=== PATIENT | male | born 1950 | race Caucasian/White ===

== ENCOUNTER 2016-12-02 04:11 | Observation (INO) | payer MEDICARE, OTHER ==
[~2016-12-02] VITALS: Ht 172.7 cm; Wt 85.0 kg
[2016-12-02] VITALS (19 sets, daily range): BP systolic 110–179; BP diastolic 56–94; PULSE 66–89; RESP 14–20; TEMP 97.8–98.9; O2SAT 93–98
[2016-12-02] MEDS: NITROGLYCERIN 0.4 MG SL 25 TABS/BTL SL SCH ×3 (04:23→04:34)
[2016-12-02] MEDS ORDERED: SODIUM CHLORIDE 0.9% FLUSH 5 ML FLUSH IVF PRN ×2 (04:30→06:00)
[2016-12-02] MEDS ORDERED: ASPIRIN 81 MG CHEW TAB PO ONE (04:30)
[2016-12-02 04:39] LABS: AUTOMATED NEUTROPHIL # 3.2 TH/MM3 (1.8-7.7); BASOPHIL % 0.7 % (0.0-2.0); EOSINOPHIL # 0.2 TH/MM3 (0-0.4); EOSINOPHIL % 2.7 % (0.0-4.0); HEMATOCRIT 56.3 % (39.0-51.0); HEMO FLAGS DIFF FINAL; LYMPH % 30.2 % (9.0-44.0); LYMPHOCYTE # 1.7 TH/MM3 (1.0-4.8); MEAN CELL VOLUME 99.2 FL (80.0-100.0); MEAN CORPUSCULAR HEMOGLOBIN 34.2 PG (27.0-34.0); MEAN CORPUSCULAR HGB CONC 34.4 % (32.0-36.0); MONO % 9.6 % (0.0-8.0); NEUT % 56.8 % (16.0-70.0); PLATELET COUNT 158 TH/MM3 (150-450); RED BLOOD COUNT 5.67 MIL/MM3 (4.50-5.90); RED CELL DISTRIBUTION WIDTH 14.4 % (11.6-17.2); WHITE BLOOD COUNT 5.6 TH/MM3 (4.0-11.0)
[2016-12-02 04:45] LABS: INTERNATIONAL NORMALIZED RATIO 0.9 RATIO
--- NOTE | 2016-12-02 04:50 | RADRPT ---
EXAM DATE/TIME: 12/02/2016 04:28 [facility] COMPARISON: No previous studies available for comparison. INDICATIONS : Pt having chest pain. MEDICAL HISTORY : None. SURGICAL HISTORY : None. ENCOUNTER: Initial ACUITY: 1 day PAIN SCORE: 6/10 LOCATION: Bilateral chest FINDINGS: A single view of the chest demonstrates minimal bibasilar subsegmental atelectasis. There may be a sm all right pleural effusion there is slight blunting of the costophrenic angle. Heart normal in size. The cardiomediastinal contours are unremarkable. Osseous structures are intact. CONCLUSION: 1. Minimal bibasilar subsegmental atelectasis. 2. Possible small right pleural effusion. Richie Munguia MD on December 02, 2016 at 4:48 Board Certified Radiologist. This report was verified electronically.
--- NOTE | 2016-12-02 04:50 | PD ---
HPI Chief Complaint: Chest Pain Time Seen by Provider: 04:19 Travel History International Travel<30 days: No Contact w/Intl Traveler<30days: No Traveled to known affect area: No History of Present Illness HPI Patient is a 66-year-old male who presents to emergency room with complaints of chest pain. Patient reports that chest pain began while at rest around 10 PM last night. Patient reports chest pain across his whole chest, reports that is nonradiating in nature. Patient reports no diaphoresis of symptoms, reports nausea and vomiting. Patient denies palpitations, reports shortness of breath with symptoms. Patient reports that he has been having intermittent chest pain for the past few weeks. Patient reports that he does not have any medical history as he has not seen a physician in 30 years. Patient does admit to being 3 pack per day smoker. PFSH Past Medical History Medical History: Denies Significant Hx Past Surgical History Eye Surgery: Yes Social History Alcohol Use: Yes (2 DRINKS/DAY) Tobacco Use: Yes (1PPD) Substance Use: No Allergies-Medications (Allergen,Severity, Reaction): Coded Allergies: No Known Allergies (Unverified , 12/02/16) Reported Meds & Prescriptions Reported Meds & Active Scripts Active No Active Prescriptions or Reported Medications Review of Systems General / Constitutional: No: Fever Eyes: No: Visual changes HENT: No: Headaches Cardiovascular: Positive: Chest Pain or Discomfort Respiratory: Positive: Shortness of Breath Gastrointestinal: Positive: Nausea, Vomiting, No: Abdominal Pain Genitourinary: No: Dysuria Musculoskeletal: No: Pain Skin: No Rash Neurologic: No: Weakness Psychiatric: No: Depression Endocrine: No: Polydipsia Hematologic/Lymphatic: No: Easy Bruising Physical Exam Narrative GENERAL: No acute distress, nontoxic SKIN: Warm and dry. HEAD: Atraumatic. Normocephalic. EYES: Pupils equal and round. No scleral icterus. No injection or drainage. ENT: No nasal bleeding or discharge. Mucous membranes pink and moist. NECK: Trachea midline. No JVD. CARDIOVASCULAR: Regular rate and rhythm. No murmur appreciated. RESPIRATORY: No accessory muscle use. Clear to auscultation. Breath sounds equal bilaterally. GASTROINTESTINAL: Abdomen soft, non-tender, nondistended. Hepatic and splenic margins not palpable. MUSCULOSKELETAL: No obvious deformities. No clubbing. No cyanosis. No edema. NEUROLOGICAL: Awake and alert. No obvious cranial nerve deficits. Motor grossly within normal limits. Normal speech. PSYCHIATRIC: Appropriate mood and affect; insight and judgment normal. Data Data Last Documented VS Vital Signs Date Time Temp Pulse Resp B/P Pulse Ox O2 Delivery O2 Flow Rate FiO2 12/02/16 04:40 76 17 110/56 94 Room Air 12/02/16 04:18 98.9 Orders Ckmb (Isoenzyme) Profile (12/02/16 04:21) Complete Blood Count With Diff (12/02/16 04:21) Comprehensive Metabolic Panel (12/02/16 04:21) Prothrombin Time / Inr (Pt) (12/02/16 04:21) Act Partial Throm Time (Ptt) (12/02/16 04:21) Troponin I (12/02/16 04:21) Lipase (12/02/16 04:21) Chest, Single Ap (12/02/16 04:21) Ecg Monitoring (12/02/16 04:21) Iv Access Insert/Monitor (12/02/16 04:21) Oximetry (12/02/16 04:21) Aspirin Chew (Aspirin Chew) (12/02/16 04:30) Sodium Chloride 0.9% Flush (Ns Flush) (12/02/16 04:30) Nitroglycerin Sl (Nitrostat Sl) (12/02/16 04:30) Nitroglycerin 2% Oint (Nitroglycerin 2% (12/02/16 05:45) Admit Order (Ed Use Only) (12/02/16 05:49) Activity Bed Rest With Brp (12/02/16 05:50) Vital Signs (Adult) Q4H (12/02/16 05:50) Cardiac Rhythm .As Directed (12/02/16 05:50) ^ Notify Dr: Other .PRN (12/02/16 05:50) ^ Notify Dr. Parameters (12/02/16 05:50) Resp Oxygen Nasal Cannula (12/02/16 ) Diet Npo (12/02/16 Breakfast) Ckmb (Isoenzyme) Profile (12/02/16 07:30) Labs Laboratory Tests Test 12/02/16 04:30 White Blood Count 5.6 TH/MM3 Red Blood Count 5.67 MIL/MM3 Hemoglobin 19.4 GM/DL Hematocrit 56.3 % Mean Corpuscular Volume 99.2 FL Mean Corpuscular Hemoglobin 34.2 PG Mean Corpuscular Hemoglobin 34.4 % Concent Red Cell Distribution Width 14.4 % Platelet Count 158 TH/MM3 Mean Platelet Volume 8.9 FL Neutrophils (%) (Auto) 56.8 % Lymphocytes (%) (Auto) 30.2 % Monocytes (%) (Auto) 9.6 % Eosinophils (%) (Auto) 2.7 % Basophils (%) (Auto) 0.7 % Neutrophils # (Auto) 3.2 TH/MM3 Lymphocytes # (Auto) 1.7 TH/MM3 Monocytes # (Auto) 0.5 TH/MM3 Eosinophils # (Auto) 0.2 TH/MM3 Basophils # (Auto) 0.0 TH/MM3 CBC Comment DIFF FINAL Differential Comment Prothrombin Time 10.0 SEC Prothromb Time International 0.9 RATIO Ratio Activated Partial 30.0 SEC Thromboplast Time Sodium Level 141 MEQ/L Potassium Level 4.2 MEQ/L Chloride Level 107 MEQ/L Carbon Dioxide Level 23.3 MEQ/L Anion Gap 11 MEQ/L Blood Urea Nitrogen 8 MG/DL Creatinine 0.86 MG/DL Estimat Glomerular Filtration 89 ML/MIN Rate Random Glucose 98 MG/DL Calcium Level 8.4 MG/DL Total Bilirubin 0.4 MG/DL Aspartate Amino Transf 19 U/L (AST/SGOT) Alanine Aminotransferase 32 U/L (ALT/SGPT) Alkaline Phosphatase 126 U/L Total Creatine Kinase 71 U/L Troponin I LESS THAN 0.02 NG/ML Total Protein 7.5 GM/DL Albumin 3.4 GM/DL Lipase 285 U/L MDM Medical Decision Making Medical Screen Exam Complete: Yes Emergency Medical Condition: Yes Interpretation(s) Vital Signs Date Time Temp Pulse Resp B/P Pulse Ox O2 Delivery O2 Flow Rate FiO2 12/02/16 04:33 81 14 129/74 94 Room Air 12/02/16 04:32 18 95 Room Air 12/02/16 04:30 77 18 129/74 95 Room Air 12/02/16 04:27 81 18 148/81 95 Room Air 12/02/16 04:24 79 18 97 Room Air 12/02/16 04:18 98.9 79 18 179/94 97 EKG at 0416: No sinus rhythm at 78 beats a minute, QT/QTc 377/411 Differential Diagnosis ACS, arrhythmia, electrolyte abnormality, pneumothorax, pancreatitis Narrative Course Patient is a 66-year-old male who presents to emergency room with complaints of chest pain. Patient reports that chest pain began around 10 PM last night, reports sensation of pressure to his chest with associated shortness of breath. Patient has been having intermittent symptoms for the past few weeks, he has not seen a doctor for this. Patient reports that symptoms are worse tonight. Upon presentation emergency room, patient was placed on cardiac/vascular sonographer as well as continuous pulse oximeter. CBC, BMP, cardiac enzymes ordered for further evaluation symptoms. Patient was given 3 sublingual nitroglycerin which brought his pain down. Pt with near resolution of symptoms at this time. Pending labs and ce - if neg, will obs to cdu Patient chest pain-free at this time. Patient agreeable to observation in the CDU overnight. Diagnosis Primary Impression: Chest pain Qualified Code: R07.9 - Chest pain, unspecified type Admitting Information Admitting Physician Requests: Observation Scripts No Active Prescriptions or Reported Meds Yuly Rivero DO Dec 02, 2016 04:50
[2016-12-02 05:29] LABS: ALKALINE PHOSPHATASE 126 U/L (45-117); ALT (GPT) 32 U/L (12-78); ANION GAP 11 MEQ/L (5-15); AST (GOT) 19 U/L (15-37); BICARBONATE 23.3 MEQ/L (21.0-32.0); BLOOD UREA NITROGEN 8 MG/DL (7-18); CHLORIDE 107 MEQ/L (98-107); GLOMERULAR FILTRATION RATE 89 ML/MIN (>89); POTASSIUM 4.2 MEQ/L (3.5-5.1); SODIUM (NA) 141 MEQ/L (136-145); TOTAL BILIRUBIN ADULT 0.4 MG/DL (0.2-1.0)
[2016-12-02 05:31] LABS: CREATINE KINASE 71 U/L (39-308)
[2016-12-02] MEDS ORDERED: NITROGLYCERIN 2% OINT 1 GM PACKET TOP ONE (05:45)
[2016-12-02 08:49] LABS: CREATINE KINASE 47 U/L (39-308)
[2016-12-02] MEDS ORDERED: ONDANSETRON HCL 4 MG/2 ML VIAL IV PRN (09:00)
[2016-12-02] MEDS ORDERED: ACETAMINOPHEN 500 MG CPLT PO PRN (09:00)
[2016-12-02] MEDS ORDERED: ASPIRIN 325 MG TAB PO SCH (09:00)
[2016-12-02] MEDS: SODIUM CHLORIDE 0.9% FLUSH 5 ML FLUSH IVF SCH ×2 (09:00→22:38)
[2016-12-02] MEDS ORDERED: NITROGLYCERIN 0.4 MG SL 25 TABS/BTL SL PRN (09:00)
[2016-12-02] MEDS ORDERED: RESP: ALBUTEROL 2.5 MG/3 ML NEB (PRN) NEB (10:30)
--- NOTE | 2016-12-02 10:53 | MH ---
cc: DELILAH MAHONEY MD DATE OF ADMISSION: 12/02/2016 DATE OF : 1950 CHIEF COMPLAINT Chest pain. HISTORY OF PRESENT ILLNESS This is a 66-year-old patient who presented to the emergency room for further evaluation of chest discomfort yesterday while watching TV. He describes chest discomfort as a gradual tightness in his sternal area that gradually went away with the total time of 20 minutes. He also was nauseous and had some mild shortness of breath, severity 7/10. Chest discomfort woke him from sleep at 2 o'clock this morning. Again it was a gradual tightness that gradually went away after approximately 30-40 minutes, severity 8/10 with no radiation of the pain. Associated symptoms included nausea, dizziness and some mild shortness of breath. No known precipitating factors or relieving factors. The patient does report over the past few years he has had intermittent chest pain approximately 2-3 times a month that lasts seconds to no more than one minute. He has not seen a primary care provider in over 30 years. PAST MEDICAL HISTORY None. PAST SURGICAL HISTORY Right hand surgery 35 years ago. FAMILY HISTORY Noncontributory for any early onset cardiovascular disease. 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 He smokes one pack of cigarettes daily. He has been trying to cut back and was up to 2-1/2 to 3 packs of cigarettes daily. Will have a couple of drinks of alcohol each evening. Denies any illegal drug use. No known hypertension, diabetes or hyperlipidemia. Reports he was active until his current sedentary job. PAST CARDIAC TESTING None. ALLERGIES He has no allergies to medication. MEDICATIONS Does not take any medications or supplements. REVIEW OF SYSTEMS GENERAL: Has not recently been sick. No fevers, chills, night sweats, fatigue, malaise, change in appetite. HEENT: No headache or visual changes or dysphagia. CARDIOVASCULAR: As stated above. Currently denies any chest pain or pressure. No palpitations or dizziness. Reports intermittent leg pain with activity that subsides with rest. This been going on for "sometime." RESPIRATORY: Has some mild shortness of breath on exertion. He relates this to his smoking and is unchanged in severity. Does have an occasional wheeze. No hemoptysis. GASTROINTESTINAL: No bowel changes, diarrhea, constipation or abdominal pain. No blood in the stool or dark stool. No nausea or vomiting. Reports good appetite. No change in weight unintentionally. GENITOURINARY: No dysuria, urgency, frequency, hematuria. EXTREMITIES: No lower leg edema. Reports leg cramps in the evening. Otherwise as stated above with intermittent leg pain. NEUROLOGIC: No difficulty with balance, motor or sensory deficits, loss of consciousness. PSYCHIATRIC: No anxiety or depression. SKIN: No concerning lesions or rashes. PHYSICAL EXAMINATION VITAL SIGNS: Temperature 97.9, pulse 76, respiratory rate 16, blood pressure 134/76. He is 94% on room air. GENERAL: An alert, well-nourished, well-developed, in no acute distress pleasant male who appears older than his stated age. HEAD: Normocephalic, atraumatic. EYES: Sclera clear. Pupils equal and round. NECK: Supple. Trachea is midline. CARDIOVASCULAR: Regular rate and rhythm without murmur, rub or gallop. No JVD. S1, S2. No S3. No S4. PULMONARY: He has no crackles. He has expiratory wheeze and a prolonged expiratory phase. No rhonchi. Non-labored. Symmetrical chest rise. No use of accessory muscles. ABDOMEN: The abdomen is soft, nontender, nondistended. No masses. Positive bowel tones. EXTREMITIES: Pulses are faint, however, palpable +1 x4. No dependent edema. MUSCULOSKELETAL: Normal tone x4. No obvious deformities. NEUROLOGIC: Cranial nerves II through XII grossly intact. Motor strength 5/5. PSYCHIATRIC: He is alert and oriented x3, has appropriate mood, insight and judgment, and is pleasant. SKIN: Normal turgor, normal texture. Sluggish capillary refill. LABORATORY DATA CBC has a hemoglobin of 19.4, hematocrit of 56.3, and an MCH of 34.2, otherwise unremarkable. Chemistry is unremarkable. Two sets of cardiac enzymes are negative. Coagulation is unremarkable. IMAGING DATA Chest x-ray completed and read by the radiologist has a conclusion of minimal bibasilar subsegmental atelectasis. Possible small right pleural effusion. EKG DATA EKGs show a normal sinus rhythm with no ST or T segment changes. ASSESSMENT AND PLAN 1. Chest pain: The patient has been admitted to the chest pain center. Will complete three sets of EKGs and cardiac enzymes. He was seen and evaluated by Dr. Delilah Mahoney. If all his troponins and EKGs are negative we will then do a chemical stress test. This has been discussed with the patient and he is agreeable to this plan of care. 2. Polycythemia: He has been encouraged to follow-up with a primary care provider and to have additional lab work drawn. This has been discussed with him. It could be simply from his longstanding smoking history, however, should be followed up upon discharge with a primary care provider. He is agreeable to this plan of care and states understanding. 3. Tobacco use: He has been strongly encouraged and stressed on the importance of tobacco cessation. Discussed and counseled the patient to quit smoking. 4. Intermittent claudication: It has been discussed with the patient to follow with a primary care provider that the feelings he is having in his legs need to have further evaluation by a primary care provider for outpatient testing as this may be due to his longstanding smoking history. He is agreeable to this plan. Dictated by: KENIA Parmar MD OZZY Leach/MARI /10:22 AM /11:54 AM
[2016-12-02 11:14] LABS: CREATINE KINASE 41 U/L (39-308)
[2016-12-02] MEDS: RESP: ALBUTEROL 2.5 MG/3 ML NEB (SCH) NEB ×3 (12:53→19:48)
[2016-12-02] MEDS ORDERED: REGADENOSON INJ 0.4 MG/5 ML SYR ONE (13:33)
--- NOTE | 2016-12-02 14:59 | RADRPT ---
EXAM DATE/TIME: 12/02/2016 13:12 [facility] COMPARISON: No previous studies available for comparison. INDICATIONS : Chest pressure. Angina. DOSE: 25.4 mCi Tc99m Myoview at stress. 8.2 mCi Tc99m Myoview at rest. 0.4 mg Lexiscan STRESS SYMPTOMS: Dyspnea. EJECTION FRACTION: > 70% MEDICAL HISTORY : None SURGICAL HISTORY : Right hand surgery. ENCOUNTER: Initial ACUITY: 1 week PAIN SCALE: 7/10 LOCATION: Substernal chest pain TECHNIQUE: The patient underwent pharmacologic stress with infusion of prescribed dose. Continuous ECG tracing was monitored during stress. Gated SPECT imaging was performed after stress and conventional SPECT i maging was performed at rest. The examination was performed on a SPECT/CT scanner, both attenuation and non-corrected datasets were reviewed. FINDINGS: DISTRIBUTION: The maximum perfused segment at stress is in the anteroseptal wall. PERFUSION STUDY: A subtle stress induced perfusion abnormality which redistributes breast is identified in the anterol ateral wall. GATED STUDY: There is intact wall motion and thickening without hypokinetic or dyskinetic segments. CONCLUSION: Questionable stress-induced perfusion abnormalities in the anterolateral wall of left ventricle. Myoc ardial perfusion is otherwise unremarkable at stress and rest. There are no associated wall motion ab normalities. Normal ejection fraction. RISK CATEGORY: Low (<1% Annual Mortality Rate) Estrada Page MD on December 02, 2016 at 14:52 Board Certified Radiologist. This report was verified electronically.
[2016-12-02] MEDS ORDERED: DIAZEPAM 5 MG TAB PO SCH (17:00)
[2016-12-02] MEDS ORDERED: diphenhydrAMINE HCL 50 MG CAP PO SCH (17:00)
[2016-12-02] MEDS: SODIUM CHLOR 0.9% 1000 ML INJ 1,000 ML IV SCH (17:00)
[2016-12-02] MEDS: NITROGLYCERIN 2% OINT 1 GM PACKET TOPICAL SCH (17:52)
[2016-12-02 18:26] LABS: HDL CHOLESTEROL 43.4 MG/DL (40.0-60.0)
[2016-12-02] MEDS ORDERED: METOPROLOL TARTRATE 25 MG TAB PO SCH (21:00)
--- NOTE | 2016-12-02 22:07 | MB ---
cc: SATINDER MUNOZ M.D. DATE OF CONSULTATION 12/02/2016 REASON FOR CONSULTATION Evaluation of chest pain and abnormal stress test. HISTORY OF THE PRESENT ILLNESS Eren Lugo is a 66 year-old man who has not been to a doctor in 30 years. He developed the onset of chest tightness while watching TV lasting 20 minutes, associated with nausea and mild shortness of breath. He has had similar symptoms about two or three times a month for at least several months. He has a longstanding history of smoking. He underwent a stress test which was abnormal. PAST MEDICAL HISTORY Unremarkable. PAST SURGICAL HISTORY Right hand surgery. FAMILY HISTORY Negative for heart disease. SOCIAL HISTORY Has smoked up to three packs a day, currently one-pack a day. Has never gone cold turkey. No illicit drug use. ALLERGIES None. MEDICATIONS PRIOR TO ADMISSION None. REVIEW OF SYSTEMS Notable for bilateral calf claudication after walking 150 feet. PHYSICAL EXAMINATION GENERAL: Well-developed, well-nourished white male in no acute distress. VITAL SIGNS: Charted. HEENT: Exam unremarkable. NECK: No JVD, no bruits. CHEST: Clear to auscultation on my exam. CARDIOVASCULAR: Cardiac exam S1-S2 regular rate and rhythm. I do not hear a murmur or gallop. ABDOMEN: Soft, nontender. No masses, organomegaly. EXTREMITIES: Reveal diminished left femoral pulse with a bruit. Absent pedal pulses. Atrophic changes suggestive of vascular disease. His EKGs demonstrate normal sinus rhythm with no ischemia. LABORATORY DATA His laboratories are charted. He is polycythemic. His nuclear stress test is interpreted as possible anterolateral ischemia which is subtle. IMPRESSION This 66-year-old male longstanding smoker with obvious vascular disease on exam, he has peripheral arterial disease in both lower extremities and involving the left groin as well. He has had typical anginal type symptoms. There is no evidence for an MD but with abnormalities on stress test and his risk factors, I think he should stay in the hospital for unstable angina. I got him scheduled for a cardiac catheterization tomorrow morning. Smoking cessation has been advised. We will check his lipids, initiate a beta-khurram, nitrate therapy. Informed consent obtained to the cath, possible intervention. MD ALONSO Mix/KK /4:46 PM /9:56 PM
[2016-12-03] MEDS: NITROGLYCERIN 2% OINT 1 GM PACKET TOPICAL SCH ×2 (00:05→06:00)
[2016-12-03] MEDS: SODIUM CHLOR 0.9% 1000 ML INJ 1,000 ML IV SCH (03:19)
[2016-12-03] MEDS: RESP: ALBUTEROL 2.5 MG/3 ML NEB (SCH) NEB ×3 (03:38→16:00)
[2016-12-03 04:27] VITALS: BP 94/55; PULSE 79; RESP 20; TEMP 98; O2SAT 95
[2016-12-03] MEDS ORDERED: HEPARIN-NS/PF INJ 500 ML ONE (07:15)
[2016-12-03] MEDS ORDERED: MIDAZOLAM HCL 2 MG/2 ML VIAL ONE (07:15)
[2016-12-03] MEDS ORDERED: LABETALOL HCL 100 MG/20 ML VIAL ONE (08:24)
[2016-12-03] MEDS ORDERED: ATROPINE SULFATE 1 MG/ML VIAL IV PRN (08:30)
[2016-12-03] MEDS ORDERED: BACITRACIN OINT 0.9 GM PKT TOP ONE (08:30)
[2016-12-03] MEDS ORDERED: SODIUM CHLORIDE 0.9% FLUSH 5 ML FLUSH IVF PRN (08:30)
[2016-12-03] MEDS ORDERED: SODIUM CHLOR 0.9% 1000 ML INJ 1,000 ML IV SCH (08:30)
[2016-12-03] MEDS ORDERED: MISC INFORMATION XX ONE (08:30)
[2016-12-03] MEDS ORDERED: SODIUM CHLOR 0.9% 250 ML INJ 250 ML IV PRN (08:30)
[2016-12-03] MEDS ORDERED: ONDANSETRON HCL 4 MG/2 ML VIAL IV PRN (08:30)
--- NOTE | 2016-12-03 08:35 | EKG ---
Date Performed: 12/02/2016 Time Performed: 07:40:02 PTAGE: 66 years EKG: Sinus rhythm NORMAL ECG PREVIOUS TRACING : 12/02/2016 04.16 Since previous tracing, no significant change noted DOCTOR: Stanford Mahoney Interpretating Date/Time 12/03/2016 08:33:25
--- NOTE | 2016-12-03 08:35 | EKG ---
Date Performed: 12/02/2016 Time Performed: 10:44:12 PTAGE: 66 years EKG: Sinus rhythm NORMAL ECG PREVIOUS TRACING : 12/02/2016 07.40 Since previous tracing, no significant change noted DOCTOR: Stanford Mahoney Interpretating Date/Time 12/03/2016 08:33:14
--- NOTE | 2016-12-03 08:35 | EKG ---
Date Performed: 12/02/2016 Time Performed: 04:16:11 PTAGE: 66 years EKG: Sinus rhythm NORMAL ECG NO PREVIOUS TRACING DOCTOR: Stanford Mahoney Interpretating Date/Time 12/03/2016 08:34:05
--- NOTE | 2016-12-03 08:37 | TR ---
Date Performed: 12/02/2016 Time Performed: 13:40:10 DOCTOR: Stanford Mahoney DRUG LIST: CLINICAL HISTORY: CHEST PAIN REASON FOR TEST: CHEST PAIN REASON FOR ENDING: OBSERVATION: CONCLUSION: Lexiscan stress test was performed under standard four minute protocol. Radionuclid e was injected one minute prior to ending the test. No electrocardiographic abormalities were present to suggest ischemia. Nuclear imaging and interpretation are pending. COMMENTS:
--- NOTE | 2016-12-03 08:43 | PD.CONS ---
HPI Service [facility] Consult Requested By Cardiology Reason for Consult Medical management. Primary Care Physician No Primary Care Physician Diagnoses: History of Present Illness Mr. Lugo is a 66 year old male no significant medical history presented to the ED on 12/02/2016 due to chest pain that started around 10PM on 12/01/2016. His chest pain was diffuse, non-radiating. He did not have diaphoresis but had nausea, vomiting and some shortness of breath. First episode lasted about 20 minutes but he had another episode later that lasted 30-40 minutes. No changes in bladder or bowel habits. Denies any fever, chills. Review of Systems ROS Limitations: Other (Negative except as noted in the HPI. ) Past Family Social History Allergies: Coded Allergies: No Known Allergies (Unverified , 12/02/16) Past Medical History No significant medical history. He has not seen a doctor in 30 years. Past Surgical History Hand surgery 35 years ago. Active Ordered Medications Current Medications Acetaminophen (Tylenol) 500 mg Q4H PRN PO HEADACHE; Start 12/02/16 at 09:00 Ondansetron HCl (Zofran Inj) 4 mg Q6H PRN IV NAUSEA; Start 12/02/16 at 09:00 Nitroglycerin (Nitrostat Sl) 0.4 mg Q5M PRN SL CHEST PAIN; Start 12/02/16 at 09: 00 Aspirin (Aspirin) 325 mg DAILY PO ; Start 12/03/16 at 09:00 Albuterol Sulfate (Albuterol Neb) 2.5 mg Q6HR NEB NEB Last administered on 03:38; Start 12/02/16 at 10:30 Albuterol Sulfate (Albuterol Neb) 2.5 mg Q2HR NEB PRN NEB SOB/WHEEZING; Start 12/02/16 at 10:30 Nitroglycerin (Nitroglycerin 2% Oint) 1 inch Q6HR TOPICAL Last administered on 12/03/16 06:00; Start 12/02/16 at 18:00 Metoprolol Tartrate 25 mg 25 mg Q12HR PO Last administered on 12/02/16 22:38; Start 12/02/16 at 21:00 Sodium Chloride (NS 1000 ml Inj) 1,000 ml @ 100 mls/hr Q10H IV Last administered on 12/03/16 03:19; Start 12/02/16 at 17:00; Stop 12/07/16 at 16:59 Diphenhydramine HCl (Benadryl) 50 mg INFORMATION MANAGEMENT OFFICER PO Last administered on 06:57; Start 12/02/16 at 17:00; Stop 12/06/16 at 16:59 Diazepam (Valium) 5 mg INFORMATION MANAGEMENT OFFICER PO Last administered on 12/03/16 06:57; Start 12/02/16 at 17:00; Stop 12/06/16 at 16:59 Family History No family history of CAD, Alzheimer's or Parkinson's. Social History Smokes one pack a day. Drinks 1-2 drinks a night. No illicit drugs. Physical Exam Vital Signs Vital Signs Date Time Temp Pulse Resp B/P Pulse Ox O2 Delivery O2 Flow Rate FiO2 12/03/16 04:27 98.0 79 20 94/55 95 12/02/16 23:05 98.1 81 20 120/69 98 12/02/16 20:45 66 12/02/16 19:49 96 21 12/02/16 19:46 98.2 89 20 122/70 95 12/02/16 15:52 98.0 76 18 142/77 96 12/02/16 11:47 97.8 73 16 127/76 95 12/02/16 11:10 67 12/02/16 09:17 97.9 76 16 134/76 94 12/02/16 09:04 68 20 110/68 95 Physical Exam GENERAL: This is a well-nourished, well-developed patient, in no apparent distress. SKIN: No rashes, ecchymoses or lesions. Warm and dry. HEAD: Atraumatic. Normocephalic. No temporal or scalp tenderness. EYES: Pupils equal round and reactive. No injection or drainage. ENT: Nose without bleeding, purulent drainage or septal hematoma. Airway patent. NECK: Trachea midline. No lymphadenopathy. Supple, nontender, no meningeal signs. CARDIOVASCULAR: Regular rate and rhythm without murmurs, gallops, or rubs. No JVD. RESPIRATORY: Clear to auscultation. Breath sounds equal bilaterally. No wheezes , rales, or rhonchi. GASTROINTESTINAL: Abdomen soft, non-tender, nondistended. No guarding. MUSCULOSKELETAL: Extremities without clubbing, cyanosis, or edema. Cath site looks unremarkable. NEUROLOGICAL: Awake and alert. Cranial nerves II through XII intact. No focal neurological deficits. Normal speech. Laboratory Laboratory Tests Test 12/02/16 10:16 Total Creatine Kinase 41 Troponin I LESS THAN 0.02 Result Diagram: 12/02/16 0430 12/02/16 0430 Imaging Last Impressions Chest X-Ray 12/02/16 0421 Signed Impressions: Service Date/Time: Friday, December 02, 2016 04:28 - CONCLUSION: 1. Minimal bibasilar subsegmental atelectasis. 2. Possible small right pleural effusion. Richie Munguia MD Myocardial Perfusion Scan Nuc Med 12/02/16 0000 Signed Impressions: Service Date/Time: Friday, December 02, 2016 13:12 - CONCLUSION: Questionable stress-induced perfusion abnormalities in the anterolateral wall of left ventricle. Myocardial perfusion is otherwise unremarkable at stress and rest. There are no associated wall motion abnormalities. Normal ejection fraction. RISK CATEGORY: Low (<1%% Annual Mortality Rate) Estrada Page MD Assessment and Plan Problem List: (1) Unstable angina ICD Code: I20.0 Status: Acute (2) HTN (hypertension) ICD Code: I10 Status: Acute Assessment and Plan Mr. Lugo is a 66 year old male no significant medical history presented to the ED on 12/02/2016 due to chest pain that started around 10PM on 12/01/2016. Nuclear stress test showed questionable stress-induced perfusion abnormalities in the anterio-lateral wall of the left ventricle. Patient subsequently underwent cardiac catheterization on 12/03/2016. - Unstable angina - Dr. Michael Mcdonnell performed cardiac cath today 12/03/2016. No cardiac intervention was performed. - Discussed with Dr. Mcdonnell. Patient can be discharged this afternoon. - ASCVD score 17-20% when we consider normal systolic BP. - Will continue Aspirin 325mg Qday, Metoprolol 25mg Q12hrs. - Switch Pravastatin to Lipitor 40QHS, preferably 80 QHS. - Hypertension - BP is high this morning after cath. - Will give him Hydralazine 10mg Q6hrs PRN. Heart rate is 60. Will avoid Labetalol. - Start Amlodipine 5 mg Qday. This can be titrated up or down by PCP. - Erythrocytosis - possible polycythemia vera - Recommend patient to follow up with his PCP and possibly a mutton puncher regarding polycythemia vera - Will order JAK2 mutation. This can be followed by PCP/mutton puncher. - Tobacco abuse - Counselled patient regarding his smoking habits. He is motivated to quit smoking. Full code. Kareem Monreal DO Dec 03, 2016 8:43 am
[2016-12-03] MEDS ORDERED: SODIUM CHLORIDE 0.9% FLUSH 5 ML FLUSH IVF SCH (09:00)
[2016-12-03] MEDS ORDERED: ASPIRIN 325 MG TAB PO SCH (09:00)
[2016-12-03] MEDS ORDERED: hydrALAZINE HCL 20 MG/ML VIAL IV PUSH PRN (09:30)
[2016-12-03] MEDS ORDERED: ISOS60TA PO (10:02)
[2016-12-03] MEDS ORDERED: ASPI325T PO (10:02)
[2016-12-03] MEDS ORDERED: NITR0.4S SL (10:02)
[2016-12-03] MEDS ORDERED: AMLO5 PO (10:02)
[2016-12-03] MEDS ORDERED: METO25TA3 PO (10:02)
[2016-12-03] MEDS ORDERED: LIPI40TA PO (10:02)
--- NOTE | 2016-12-03 10:21 | MA ---
cc: SATINDER MUNOZ M.D. DATE: 12/03/2016 PROCEDURE PERFORMED: 1. Left heart catheterization. 2. Left ventriculogram. 3. Coronary angiography. 4. Supravalvular aortography. DESCRIPTION OF PROCEDURE: The patient was brought to the Cardiac Urologist in a fasting state. The right groin was prepped and draped in a sterile fashion. Using 1% lidocaine for local anesthesia, a 6.5-Panamanian sheath was inserted in the right femora artery requiring only a single stick. Left ventricular pressure was then recorded using a pigtail catheter followed by left ventriculography and then a pull-back. Coronary angiography was then performed. I could not get a left 5 Augusto to engage. A 3DRC was used to engage the right coronary artery. I went to a left 6 Augusto. This engaged the left main but actually went fairly deep in the LAD. I took one angiogram and pulled the catheter back and was not able to re-engage it. I then went with a left 2 Amplatz and was not able to engage the left main. I then used a multipurpose catheter which engaged the left main adequately to complete his angiograms. There was no need for revascularization. Supravalvular aortogram was then performed with a straight pigtail in the CHUY projection. The sheath was then to be pulled manually. There were no complications. FINDINGS I. HEMODYNAMICS: Left ventricular pressure was 142/6 with an end-diastolic pressure of 13. Aortic pressure was 142/60. There was no gradient during pullback from the left ventricle to the aorta. II. LEFT VENTRICULOGRAPHY: Left ventriculography shows normal left ventricular function and an EF of 70%. No mitral regurgitation. III. SUPRAVALVULAR AORTOGRAPHY: The aortic valve was tricuspid. The entire descending aorta was mildly dilated. There is no aortic regurgitation. IV. CORONARY ANGIOGRAPHY: The left main coronary artery is short and normal-appearing. The left anterior descending artery has a discrete eccentric 40% stenosis after the major diagonal branch. The second diagonal branch is small, maybe has 50% stenosis at its origin. The remainder of the LAD has irregularities only. The circumflex artery is nondominant. There is about 30% distal circumflex disease and 30% obtuse marginal branch disease. The right coronary artery is dominant and has irregularities particularly in the PDA branch. CONCLUSIONS: 1. Unremarkable hemodynamics. 2. Dilated ascending aorta. 3. Normal left ventricular systolic function. 4. Mild coronary artery disease. RECOMMENDATIONS: 1. Medical management. 2. He has been told to quit smoking and to take medications regularly. 3. He is stable enough to be followed through the [facility]. MD ALONSO Mix/SUMAN /8:30 AM /10:01 AM
[2016-12-03] MEDS ORDERED: ATORVASTATIN 40 MG TAB PO SCH (21:00)
[2016-12-03] MEDS ORDERED: PRAVASTATIN SOD 40 MG TAB PO SCH (21:00)
[2016-12-04] MEDS ORDERED: ISOSORBIDE MONONITRATE 60 MG TAB PO SCH (07:00)
[2016-12-04] MEDS ORDERED: amLODIPine BESYLATE 5 MG TAB PO SCH (09:00)
[2016-12-05] MEDS: RESP: ALBUTEROL 2.5 MG/3 ML NEB (SCH) NEB ×2 (09:52→16:15)
== END 2016-12-03 15:20 | disposition home or self-care (01) ==
LOC: NEPC 04:11 → NEDA 05:51 → NEPHCDU 09:14 → HCIS 12-03 08:57
PROVIDERS: ADMIT Hospitalist; ATTEND Hospitalist
DX: I25.110 Atherosclerotic heart disease of native coronary artery with unstable angina pectoris (principal); I77.819 Aortic ectasia, unspecified site; I73.9 Peripheral vascular disease, unspecified; D75.1 Secondary polycythemia; I10 Essential (primary) hypertension; F17.210 Nicotine dependence, cigarettes, uncomplicated; R94.39 Abnormal result of other cardiovascular function study; R06.02 Shortness of breath; R07.9 Chest pain, unspecified; R11.2 Nausea with vomiting, unspecified; R42 Dizziness and giddiness
CPT/HCPCS: 71010; 78452; 80053; 80061; 82550; 83690; 84484; 85025; 85610; 85730; 93005; 93017; 93458; 93567; 94640; 94664; 99285; A9502; C1769; C1893; G0378; J0360; J1644; J2250; J2785; J7030; J7613; Q0163

== ENCOUNTER 2018-09-05 17:35 | Observation (INO) ==
--- NOTE | 2018-09-05 18:37 | XR ---
EXAM DATE: 09/05/2018 6:10 PM EDT AGE/SEX: 67 years / Male INDICATIONS: Chest pain. Patient states he started coughing up blood on 09/04/2018 and experiencing dizziness and headaches. CLINICAL DATA: This is the patient's initial encounter. Patient reports that signs and symptoms have been present for 2 days and indicates a pain score of 3/10. MEDICAL/SURGICAL HISTORY: . Smoker. None. COMPARISON: [facility] [place], CHEST SINGLE AP, 12/02/2016. . FINDINGS: Mild diffuse interstitial prominence with stable small right pleural effusion/pleural thickening. No significant new focal pleural or parenchymal opacities. The cardiomediastinal contours are unremarkab le. Osseous structures are intact. CONCLUSION: 1. No acute abnormality or significant interval change. 2. Stable small right pleural effusion/pleural thickening. Electronically signed by: Bryce Jiménez MD 09/05/2018 6:36 PM EDT
[2018-09-05 18:38] LABS: Baso # (Auto) 0.1 th/mm3 (0.0-0.2); Eos # (Auto) 0.2 th/mm3 (0.0-0.4); Hemoglobin 17.8 gm/dL (13.0-17.0); Lymph # (Auto) 1.4 th/mm3 (1.0-4.8); Lymph % (Auto) 25.8 % (9.0-44.0); Mean Corpuscular HGB Conc 34.9 % (32.0-36.0); Mean Corpuscular Hemoglobin 33.1 pg (27.0-34.0); Mean Corpuscular Volume 94.7 fL (80.0-100.0); Mean Platelet Volume 8.9 fL (7.0-11.0); Mono # (Auto) 0.6 th/mm3 (0.0-0.9); Neut # (Auto) 3.3 th/mm3 (1.8-7.7); Neut % (Auto) 60.2 % (16.0-70.0); Platelet Count 157 th/mm3 (150-450); Red Blood Count 5.39 mil/mm3 (4.50-5.90); Red Cell Distribution Width 14.4 % (11.6-17.2); White Blood Count 5.5 th/mm3 (4.0-11.0)
[2018-09-05 18:45] LABS: Prothrombin Time 9.8 sec (9.8-11.6)
[2018-09-05 18:58] LABS: Albumin 3.3 g/dL (3.4-5.0); Anion Gap 8 meq/L (5-15); Aspartate Aminotransferase 24 U/L (15-37); Blood Urea Nitrogen 15 mg/dL (7-18); Calcium 8.6 mg/dL (8.5-10.1); Carbon Dioxide 21.9 meq/L (21.0-32.0); Chloride 107 meq/L (98-107); Glomerular Filtration Rate 62 mL/min (>89); Glucose,Random 108 mg/dL (74-106); Potassium 4.1 meq/L (3.5-5.1); Sodium 137 meq/L (136-145)
[2018-09-05 19:00] LABS: Alanine Aminotransferase 33 U/L (12-78)
[2018-09-05 19:03] LABS: Alkaline Phosphatase 126 U/L (45-117); Total Protein 7.7 g/dL (6.4-8.2)
[2018-09-05 19:07] LABS: Creatine Kinase 61 U/L (39-308)
--- NOTE | 2018-09-05 20:00 | ED ---
HPI General Chief complaint: Respiratory Symptoms Stated complaint: coughing up blood/headaches/dizziness Time Seen by Provider: 09/05/18 18:01 Source: patient and RN notes reviewed Mode of arrival: ambulatory Limitations: no limitations History of Present Illness HPI narrative: 67-year-old male the presents to the ED for evaluation of hemoptysis. Per patient he has been having cough of blood for the past couple of days. Per patient is not getting better. Per patient he has been feeling dizzy and weak today which is what prompted evaluation. Per patient he does not take any blood thinners. He denies any urinary or bowel movement issues. Denies any chest pain. No fevers chills or sweats. No recent travel. He does work in a motel. He states that the cough is productive and started more with phlegm and now it is blood stinched. He does show was 1 of his napkins where he coughed into and there is blood in some clots. Denies any headache. No blurry vision. States that for the most part he just feels dizzy. Per patient this is not as severe. More concerned about the bleeding. No history of PE. History of stents in the past. Related Data Home Medications Medication Instructions Recorded Confirmed aspirin 325 mg PO DAILY 09/05/18 09/05/18 Allergies Allergy/AdvReac Type Severity Reaction Status Date / Time No Known Allergies Allergy Verified 09/05/18 17:42 Review of Systems ROS: all other systems reviewed are negative [facility] Social History Social History Substance History: No History of Abuse Second Hand Smoke Exposure: No Smoking Status: Heavy tobacco smoker Tobacco Type: Cigarettes How Often Do You Have a Drink Containing Alcohol: 2 to 4 times a month Recent Travel in [facility] within the Last 8 Weeks: No Recent Out of Country Travel within the Last 8 Weeks: No Immunization History Tetanus Immunization: Unsure Exam Narrative Exam Narrative: GENERAL: Well-appearing SKIN: Focused skin assessment warm/dry. HEAD: Atraumatic. Normocephalic. EYES: Pupils equal and round. No scleral icterus. No injection or drainage. ENT: No nasal bleeding or discharge. Mucous membranes pink and moist. Tongue is midline. No uvula deviation. NECK: Trachea midline. No JVD. CARDIOVASCULAR: Regular rate and rhythm. No murmur appreciated. RESPIRATORY: No accessory muscle use. Mild wheezing heard especially on the left lower lung field left upper lung field. Breath sounds equal bilaterally. GASTROINTESTINAL: Abdomen soft, non-tender, nondistended. Hepatic and splenic margins not palpable. MUSCULOSKELETAL: No obvious deformities. No clubbing. No cyanosis. No edema. Full range of motion of the upper and lower extremities bilaterally. 2+ pulses bilaterally. NEUROLOGICAL: Awake and alert. No obvious cranial nerve deficits. Motor grossly within normal limits. Normal speech. PSYCHIATRIC: Appropriate mood and affect; insight and judgment normal. Course Initial Documented Vital Signs Temperature 98.6 F 09/05/18 17:39 Pulse Rate 80 09/05/18 17:39 Respiratory Rate 18 09/05/18 17:39 Blood Pressure 222/101 H 09/05/18 17:39 Pulse Oximetry 97 09/05/18 17:39 Last Documented Vital Signs Temperature 98.2 F 09/06/18 12:00 Pulse Rate 89 09/06/18 12:00 Respiratory Rate 16 09/06/18 12:00 Blood Pressure 180/93 H 09/06/18 12:00 Pulse Oximetry 95 09/06/18 12:00 Medical Decision Making SHAWN Attestation SHAWN supervised visit: Yes Attestation: Patient has hemoptysis all day long he has a CAT scan that shows abnormal lesions that could be infectious patient denies any history of risk for tuberculosis patient is a smoker patient is refusing to stay for admission for treatment of his hemoptysis as well as being seen by pulmonology I explained the patient is essential that he stays he is worried because 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 Patient was properly examined and was found to have signs and symptoms concerning for hemoptysis. Labs and imaging were ordered. Labs and imaging showed abnormalities in the CTA. My attending is concerned that this is likely cancer. Patient does continue to cough a lot of blood. Patient has multiple napkins here where he is coughing and there is blood and clots in it. Because of this my attending recommends admission for further evaluation and treatment. Case discussed with Dr. Darby who agrees to admission. My attending himself spoke with the patient as patient said he could not stay because he had to take care of his motel. He decided ultimately to stay for further treatment and management. Medical Screen Exam Complete: Yes Emergency Medical Condition: Yes Differential Diagnosis Differential Diagnosis: Hemoptysis versus PE versus pneumonia versus coughing of blood versus bacterial infection versus TB Medical Records Medical records reviewed: Yes I reviewed the patient's medical records. Lab Data Lab results reviewed: Yes I reviewed the patient's lab results. Result diagrams: 09/06/18 06:10 09/06/18 06:10 Lab Results 09/05/18 09/05/18 09/05/18 Range/Units 18:15 18:15 18:15 WBC 5.5 (4.0-11.0) th/mm3 RBC 5.39 (4.50-5.90) mil/mm3 Hgb 17.8 H (13.0-17.0) gm/dL Hct 51.0 (39.0-51.0) % MCV 94.7 (80.0-100.0) fL MCH 33.1 (27.0-34.0) pg MCHC 34.9 (32.0-36.0) % RDW 14.4 (11.6-17.2) % Plt Count 157 (150-450) th/mm3 MPV 8.9 (7.0-11.0) fL Neut % (Auto) 60.2 (16.0-70.0) % Lymph % (Auto) 25.8 (9.0-44.0) % [place] % (Auto) 10.0 H (0.0-8.0) % Eos % (Auto) 3.0 (0.0-4.0) % Baso % (Auto) 1.0 (0.0-2.0) % Neut # (Auto) 3.3 (1.8-7.7) th/mm3 Lymph # (Auto) 1.4 (1.0-4.8) th/mm3 [place] # (Auto) 0.6 (0.0-0.9) th/mm3 Eos # (Auto) 0.2 (0.0-0.4) th/mm3 Baso # (Auto) 0.1 (0.0-0.2) th/mm3 WBC Differential . Differential Comment Auto diff final PT 9.8 (9.8-11.6) sec INR 1.0 Ratio APTT 28.0 (24.3-30.1) sec Sodium 137 (136-145) meq/L Potassium 4.1 (3.5-5.1) meq/L Chloride 107 (98-107) meq/L Carbon Dioxide 21.9 (21.0-32.0) meq/L Anion Gap 8 (5-15) meq/L BUN 15 (7-18) mg/dL Creatinine 1.17 (0.60-1.30) mg/dL Estimated GFR 62 L (>89) mL/min Random Glucose 108 H (74-106) mg/dL Calcium 8.6 (8.5-10.1) mg/dL Total Bilirubin 0.5 (0.2-1.0) mg/dL AST 24 (15-37) U/L ALT 33 (12-78) U/L Alkaline Phosphatase 126 H (45-117) U/L Total Creatine Kinase 61 (39-308) U/L Troponin I Less than 0.02 L (0.02-0.05) ng/mL Total Protein 7.7 (6.4-8.2) g/dL Albumin 3.3 L (3.4-5.0) g/dL Urine Color (Yellw/Straw) Urine Clarity (Clear) Urine pH (5.0-8.5) Ur Specific [place] (1.002-1.035) Urine Protein (Neg-Trace) mg/dL Urine Glucose (UA) (Negative) mg/dL Urine Ketones (Negative) mg/dL Urine Occult Blood (Negative) Urine Nitrate (Negative) Urine Bilirubin (Negative) Urine Urobilinogen (Less than 2) mg/dL Ur Leukocyte Esterase (Negative) Urine RBC (0-3) /hpf Urine Mucus (Occasional) /lpf Ur Microscopic Review Blood Type Blood Type Recheck Antibody Screen 09/05/18 09/06/18 09/06/18 Range/Units 18:15 06:10 06:10 WBC 4.6 (4.0-11.0) th/mm3 RBC 5.36 (4.50-5.90) mil/mm3 Hgb 17.7 H (13.0-17.0) gm/dL Hct 50.2 (39.0-51.0) % MCV 93.6 (80.0-100.0) fL MCH 33.0 (27.0-34.0) pg MCHC 35.2 (32.0-36.0) % RDW 14.4 (11.6-17.2) % Plt Count 148 L (150-450) th/mm3 MPV 8.9 (7.0-11.0) fL Neut % (Auto) 85.2 H (16.0-70.0) % Lymph % (Auto) 11.6 (9.0-44.0) % [place] % (Auto) 2.4 (0.0-8.0) % Eos % (Auto) 0.4 (0.0-4.0) % Baso % (Auto) 0.4 (0.0-2.0) % Neut # (Auto) 4.0 (1.8-7.7) th/mm3 Lymph # (Auto) 0.5 L (1.0-4.8) th/mm3 [place] # (Auto) 0.1 (0.0-0.9) th/mm3 Eos # (Auto) 0.0 (0.0-0.4) th/mm3 Baso # (Auto) 0.0 (0.0-0.2) th/mm3 WBC Differential . Differential Comment Auto diff final PT (9.8-11.6) sec INR Ratio APTT (24.3-30.1) sec Sodium 139 (136-145) meq/L Potassium 4.2 (3.5-5.1) meq/L Chloride 109 H (98-107) meq/L Carbon Dioxide 21.6 (21.0-32.0) meq/L Anion Gap 8 (5-15) meq/L BUN 14 (7-18) mg/dL Creatinine 1.07 (0.60-1.30) mg/dL Estimated GFR 69 L (>89) mL/min Random Glucose 118 H (74-106) mg/dL Calcium 8.5 (8.5-10.1) mg/dL Total Bilirubin 0.5 (0.2-1.0) mg/dL AST 23 (15-37) U/L ALT 33 (12-78) U/L Alkaline Phosphatase 125 H (45-117) U/L Total Creatine Kinase (39-308) U/L Troponin I (0.02-0.05) ng/mL Total Protein 7.8 (6.4-8.2) g/dL Albumin 3.4 (3.4-5.0) g/dL Urine Color (Yellw/Straw) Urine Clarity (Clear) Urine pH (5.0-8.5) Ur Specific [place] (1.002-1.035) Urine Protein (Neg-Trace) mg/dL Urine Glucose (UA) (Negative) mg/dL Urine Ketones (Negative) mg/dL Urine Occult Blood (Negative) Urine Nitrate (Negative) Urine Bilirubin (Negative) Urine Urobilinogen (Less than 2) mg/dL Ur Leukocyte Esterase (Negative) Urine RBC (0-3) /hpf Urine Mucus (Occasional) /lpf Ur Microscopic Review Blood Type A Positive Blood Type Recheck Required Antibody Screen Negative 09/06/18 Range/Units 09:30 WBC (4.0-11.0) th/mm3 RBC (4.50-5.90) mil/mm3 Hgb (13.0-17.0) gm/dL Hct (39.0-51.0) % MCV (80.0-100.0) fL MCH (27.0-34.0) pg MCHC (32.0-36.0) % RDW (11.6-17.2) % Plt Count (150-450) th/mm3 MPV (7.0-11.0) fL Neut % (Auto) (16.0-70.0) % Lymph % (Auto) (9.0-44.0) % [place] % (Auto) (0.0-8.0) % Eos % (Auto) (0.0-4.0) % Baso % (Auto) (0.0-2.0) % Neut # (Auto) (1.8-7.7) th/mm3 Lymph # (Auto) (1.0-4.8) th/mm3 [place] # (Auto) (0.0-0.9) th/mm3 Eos # (Auto) (0.0-0.4) th/mm3 Baso # (Auto) (0.0-0.2) th/mm3 WBC Differential Differential Comment PT (9.8-11.6) sec INR Ratio APTT (24.3-30.1) sec Sodium (136-145) meq/L Potassium (3.5-5.1) meq/L Chloride (98-107) meq/L Carbon Dioxide (21.0-32.0) meq/L Anion Gap (5-15) meq/L BUN (7-18) mg/dL Creatinine (0.60-1.30) mg/dL Estimated GFR (>89) mL/min Random Glucose (74-106) mg/dL Calcium (8.5-10.1) mg/dL Total Bilirubin (0.2-1.0) mg/dL AST (15-37) U/L ALT (12-78) U/L Alkaline Phosphatase (45-117) U/L Total Creatine Kinase (39-308) U/L Troponin I (0.02-0.05) ng/mL Total Protein (6.4-8.2) g/dL Albumin (3.4-5.0) g/dL Urine Color Yellow (Yellw/Straw) Urine Clarity Clear (Clear) Urine pH 7.0 (5.0-8.5) Ur Specific [place] 1.023 (1.002-1.035) Urine Protein Negative (Neg-Trace) mg/dL Urine Glucose (UA) Negative (Negative) mg/dL Urine Ketones Negative (Negative) mg/dL Urine Occult Blood Negative (Negative) Urine Nitrate Negative (Negative) Urine Bilirubin Negative (Negative) Urine Urobilinogen Less than 2 (Less than 2) mg/dL Ur Leukocyte Esterase Negative (Negative) Urine RBC 1 (0-3) /hpf Urine Mucus Few H (Occasional) /lpf Ur Microscopic Review Not Reportable Blood Type Blood Type Recheck Antibody Screen Imaging Data Attestation: I personally reviewed and interpreted this imaging study as follows : Radiologist's impression: Chest X-Ray 09/05/18 18:10 CONCLUSION: 1. No acute abnormality or significant interval change. 2. Stable small right pleural effusion/pleural thickening. Chest CTA 09/05/18 18:11 CONCLUSION: 1. No evidence of pulmonary was. 2. Multiple right-sided subcentimeter pulmonary nodular densities. Recommend six-month follow-up noncontrast chest CT by Fleischner criteria. 3. Irregularly-shaped pleural-based elongated opacities in the right middle lobe and right lower lobe, likely representing atelectasis. 4. Old granulomatous disease. 5. Mildly prominent diameter of the ascending thoracic aorta. 6. Mildly prominent nonspecific right axillary lymph nodes. 7. Mild pulmonary emphysema. ECG Data Attestation: I personally reviewed and interpreted this ECG as follows: Interpretation: EKG shows sinus rhythm with no sign of acute ischemia or arrhythmia. Read by me and attending. Discharge Plan Discharge Disposition Patient Disposition: 30 Still Patient Discharge Details Diagnosis: Hemoptysis, Lung nodules, Tobacco abuse, HTN (hypertension), COPD (chronic obstructive pulmonary disease) Physicians Team ED Provider: Justyn Garcia ED Midlevel Provider: Abdulkadir Nicholson Primary Care Provider: Primary Care Alicia,Sabrina Attending Provider: Malika Heck Other Providers: Marco Ames V Status ED Status: Left Department Discharge Information Discharge Date/Time: 09/05/18 21:50
--- NOTE | 2018-09-05 20:09 | CT ---
EXAM DATE: 09/05/2018 7:01 PM EDT AGE/SEX: 67 years / Male INDICATIONS: Hemoptysis. CLINICAL DATA: This is the patient's initial encounter. Patient reports that signs and symptoms have been present for 1 day and indicates a pain score of 0/10. MEDICAL/SURGICAL HISTORY: None. None. RADIATION DOSE: 17.41 CTDI (mGy) COMPARISON: No prior exams available for comparison. TECHNIQUE: Volumetric scanning was performed using a multi-row detector CT scanner during bolus infu alejandro of 70 ml Omnipaque 350 (iohexol) nonionic water-soluble contrast as a single exam dose. The madalyn a was post processed with a variety of visualization algorithms including full volume maximum intensi ty projection and sliding thin slab reformation. Using automated exposure control and adjustment of the mA and/or kV according to patient size, radiation dose was kept as low as reasonably achievable t o obtain optimal diagnostic quality images. DICOM format image data is available electronically for review and comparison. FINDINGS: Pulmonary Arteries: No filling defects are seen in the pulmonary arteries out to the subsegmental ve ssels. Lung: Mild paraseptal pulmonary emphysema. 4 mm nodular density in the anterior right upper lung on image #44. 7 mm nodular density in the right midlung on image #53. 5 mm nodular density in the anteri or right midlung on image #58. Irregularly-shaped pleural-based opacities in the right middle lobe an d lateral right lower lobe likely representing atelectasis. Calcified granuloma in the left upper lob e. Effusion: None. Mediastinum: Calcified hilar lymph nodes bilaterally.. Coronary artery calcifications. Diffuse ather osclerotic disease of the aorta. Mildly prominent ascending aorta measuring 4.3 cm. Other: Multiple mildly prominent lymph nodes in the axilla, nonspecific largest is seen on the right measuring 1.6 cm in short axis dimension. Calcified granulomas in the spleen and liver. CONCLUSION: 1. No evidence of pulmonary was. 2. Multiple right-sided subcentimeter pulmonary nodular densities. Recommend six-month follow-up non contrast chest CT by Fleischner criteria. 3. Irregularly-shaped pleural-based elongated opacities in the right middle lobe and right lower lob e, likely representing atelectasis. 4. Old granulomatous disease. 5. Mildly prominent diameter of the ascending thoracic aorta. 6. Mildly prominent nonspecific right axillary lymph nodes. 7. Mild pulmonary emphysema. Electronically signed by: Doroteo Leyva MD 09/05/2018 8:08 PM EDT
[2018-09-05] MEDS ORDERED: Acetaminophen 325 MG Tablet PO PRN (20:58)
[2018-09-05] MEDS ORDERED: Bisacodyl 10 MG Supp RECTAL PRN (20:58)
--- NOTE | 2018-09-05 21:47 | P.HPIM ---
History of Present Illness Primary Care Physician: No Primary Care Physician History of Present Illness: This is a 67-year-old male with a PMH of HTN and Tobacco Abuse who presents to ER with complaints of cough and hemoptysis x2-3 days. Denies h/o similar symptoms. No fever, chills or chest pain. On ASA at home, no other anticoagulation. On arrival, BP 222/101, HR 80, O2 sat 97% on RA, Afebrile. CBC unremarkable. Hemoglobin 17.8. INR 1.0. Chemistry unremarkable. Troponin negative. CXR with no acute findings. CTA Chest multiple right-sided subcentimeter pulmonary nodules with recommended for six-month follow-up, irregularly-shaped pleural-based opacities likely atelectasis, old granulomatous disease. While in ER, pt w/ multiple episodes of hemoptysis. - Diagnosis (1) Hemoptysis (2) Lung nodules (3) Tobacco abuse (4) HTN (hypertension) (5) COPD (chronic obstructive pulmonary disease) Review of Systems PAST FAMILY HISTORY: Reviewed. No h/o DM or CAD All other systems reviewed negative except as stated in HPI PMFSH - History History Provided By: Patient - Tobacco History Second Hand Smoke Exposure: Yes Tobacco Use In Past 30 Days: Yes Smoking Status: Current every day smoker Tobacco Type: Cigarettes - Alcohol History How Often Do You Have a Drink Containing Alcohol: 4 or more times a week - Substance Use History Substance History: No History of Abuse - Travel History Recent Travel in the [place] Within the Last 8 Weeks: No Recent Travel Out of the Country Within the Last 8 Weeks: No - Immunization History Tetanus Immunization: Unsure Medications and Allergies Active Medications: Active Medications Acetaminophen (Tylenol) 650 mg PO Q4H PRN PRN Reason: Temp > 100.4 Al Hydroxide/Mg Hydroxide (Milk Of Magnjenaro Liq) 30 ml PO Q12H PRN PRN Reason: Mild Constipation Albuterol (Duoneb Neb (Prn)) 1 ampul NEB Q4HR NEB PRN PRN Reason: SOB/WHEEZING Bisacodyl (Dulcolax Supp) 10 mg RECTAL DAILY PRN PRN Reason: SEVERE CONSITIPATION Budesonide/Formoterol Fumarate (Symbicort 160/4.5 Mcg Inh) 2 puff INH BID ARMANDO Levofloxacin/Dextrose (Levaquin 750 Mg Premix Inj) 150 mls @ 100 mls/hr IV.SIG ONCE ONE Stop: 09/05/18 21:58 Last Admin: 09/05/18 21:07 Dose: 100 mls/hr Lactulose (Lactulose Liq) 30 ml PO DAILY PRN PRN Reason: SEVERE CONSITIPATION Methylprednisolone Sodium Succinate (Solumedrol Inj) 40 mg IV.PUSH Q6H ARMANDO Ondansetron HCl (Zofran Inj) 4 mg IV.PUSH Q6H PRN PRN Reason: NAUSEA OR VOMITING Senna/Docusate Sodium (Mary-Colace) 1 tab PO BID ARMANDO Sennosides (Senokot) 17.2 mg PO Q12H PRN PRN Reason: Moderate Constipation Allergies Allergy/AdvReac Type Severity Reaction Status Date / Time No Known Allergies Allergy Verified 09/05/18 17:42 Home Medications Medication Instructions Recorded Confirmed Type aspirin 325 mg PO DAILY 09/05/18 09/05/18 History Exam Vital signs: Vital Signs 09/05/18 17:39 09/05/18 17:53 09/05/18 18:12 Temperature 98.6 F Pulse Rate 80 80 82 Respiratory Rate 18 18 18 Blood Pressure 222/101 H 205/92 H 178/81 H Pulse Oximetry 97 98 97 09/05/18 20:45 09/05/18 20:58 09/05/18 21:36 Temperature 98.0 F Pulse Rate 72 Respiratory Rate 18 Blood Pressure Pulse Oximetry 96 Intake & Output 09/05/18 09/05/18 09/06/18 06:59 18:59 06:59 Weight 86.183 kg Narrative: PE: GENERAL: Middle-aged white male in no acute distress. SKIN: Focused skin assessment warm and dry. HEENT: PERRLA, EOMI. No scleral icterus or conjunctival pallor. No lid lag or facial droop. CARDIOVASCULAR: Regular rate and rhythm. No obvious murmurs to auscultation. No chest tenderness to palpation. RESPIRATORY: No obvious rhonchi. Occasional wheezing. Clear to auscultation. Breath sounds equal bilaterally. GASTROINTESTINAL: Abdomen soft, non-tender, nondistended. BS normal. MUSCULOSKELETAL: Extremities without clubbing, cyanosis, or edema. No obvious deformities. NEUROLOGICAL: Awake, alert and oriented x4. No focal neurologic deficits. Moving both upper and lower extremities spontaneously. PSYCHIATRIC: Appropriate mood and affect. Insight and judgment normal. Results - Labs CBC & Chem 7: 09/05/18 18:15 09/05/18 18:15 Labs: Short CBC 09/05/18 Range/Units 18:15 WBC 5.5 (4.0-11.0) th/mm3 Hgb 17.8 H (13.0-17.0) gm/dL Hct 51.0 (39.0-51.0) % Plt Count 157 (150-450) th/mm3 BMP 09/05/18 18:15 Sodium 137 Potassium 4.1 Chloride 107 Carbon Dioxide 21.9 BUN 15 Creatinine 1.17 Calcium 8.6 Cardiac Enzymes 09/05/18 Range/Units 18:15 Total Creatine Kinase 61 (39-308) U/L Troponin I Less than 0.02 L (0.02-0.05) ng/mL Liver Function 09/05/18 Range/Units 18:15 Total Bilirubin 0.5 (0.2-1.0) mg/dL AST 24 (15-37) U/L ALT 33 (12-78) U/L Alkaline Phosphatase 126 H (45-117) U/L Albumin 3.3 L (3.4-5.0) g/dL - Imaging Impressions Chest X-Ray 09/05/18 18:10 CONCLUSION: 1. No acute abnormality or significant interval change. 2. Stable small right pleural effusion/pleural thickening. Chest CTA 09/05/18 18:11 CONCLUSION: 1. No evidence of pulmonary was. 2. Multiple right-sided subcentimeter pulmonary nodular densities. Recommend six-month follow-up noncontrast chest CT by Fleischner criteria. 3. Irregularly-shaped pleural-based elongated opacities in the right middle lobe and right lower lobe, likely representing atelectasis. 4. Old granulomatous disease. 5. Mildly prominent diameter of the ascending thoracic aorta. 6. Mildly prominent nonspecific right axillary lymph nodes. 7. Mild pulmonary emphysema. Caprini VTE Risk Assessment Caprini VTE Risk Assessment: No/Low Risk (score <= 1) VTE Pharmacological Exception Reason: Active bleeding Caprini Risk Assessment Model: Point Value = 1 Point Value = 2 Point Value = 3 Point Value = 5 Age 41-60 Minor surgery BMI > 25 kg/m2 Swollen legs Varicose veins or History of unexplained or recurrent spontaneous Oral contraceptives or hormone replacement Sepsis (< 1 month) Serious lung disease, including pneumonia (< 1 month) Abnormal pulmonary function Acute myocardial infarction Congestive heart failure (< 1 month) History of inflammatory bowel disease Medical patient at bed rest Age 61-74 Arthroscopic surgery Major open surgery (> 45 min) Laparoscopic surgery (> 45 min) Malignancy Confined to bed (> 72 hours) Immobilizing plaster cast Central venous access Age >= 75 History of VTE Family history of VTE Factor V Leiden Prothrombin [id number] Lupus anticoagulant Anticardiolipin antibodies Elevated serum homocysteine Heparin-induced thrombocytopenia Other congenital or acquired thrombophilia Stroke (< 1 month) Elective arthroplasty Hip, pelvis, or leg fracture Acute spinal cord injury (< 1 month) Prophylaxis Regimen: Total Risk Factor Score Risk Level Prophylaxis Regimen 0-1 Low Early ambulation 2 Moderate Order ONE of the following: *Sequential Compression Device (SCD) *Heparin 5000 units SQ BID 3-4 Higher Order ONE of the following medications: *Heparin 5000 units SQ TID *Enoxaparin/Lovenox 40 mg SQ daily (WT < 150 kg, CrCl > 30 mL/min) *Enoxaparin/Lovenox 30 mg SQ daily (WT < 150 kg, CrCl > 10-29 mL/min) *Enoxaparin/Lovenox 30 mg SQ BID (WT < 150 kg, CrCl > 30 mL/min) AND/OR *Sequential Compression Device (SCD) 5 or more Highest Order ONE of the following medications: *Heparin 5000 units SQ TID (Preferred with Epidurals) *Enoxaparin/Lovenox 40 mg SQ daily (WT < 150 kg, CrCl > 30 mL/min) *Enoxaparin/Lovenox 30 mg SQ daily (WT < 150 kg, CrCl > 10-29 mL/min) *Enoxaparin/Lovenox 30 mg SQ BID (WT < 150 kg, CrCl > 30 mL/min) AND *Sequential Compression Device (SCD) Assessment and Plan - Assessment (1) Hemoptysis Code(s): R04.2 - Hemoptysis Status: Acute (2) Lung nodules Code(s): R91.8 - Other nonspecific abnormal finding of lung field Status: Acute (3) Tobacco abuse Code(s): Z72.0 - Tobacco use Status: Acute (4) HTN (hypertension) Code(s): I10 - Essential (primary) hypertension Status: Acute (5) COPD (chronic obstructive pulmonary disease) Code(s): J44.9 - Chronic obstructive pulmonary disease, unspecified Status: Acute - Plan A/P: 1. Hemoptysis: acute onset of hemoptysis x2-3 days, multiple episodes while in ER, on ASA at home, will hold. CTA Chest negative for PE, but multiple nodules. Hgb stable at 17.8, will admit for Observation, Consult Pulmonology for possible Bronchoscopy, repeat Hgb in am. 2. Lung Nodules: CTA Chest w/ multiple subcentimeter nodules, recommendation for follow-up imaging, instructed pt he needs to follow up as outpatient to re- evaluate nodules, concern for possible malignancy in light of tobacco abuse. 3. COPD: Chronic Respiratory Failure, w/ acute exacerbation, +wheezing on exam. Solu-Medrol, DuoNeb, Symbicort. Monitor O2. 4. HTN: Uncontrolled. BP 190-200's on arrival, monitor closely, antihypertensives as needed. 5. DVT Prophylaxis: SCD/Teds 6. Social work for d/c planning as needed 7. Case discussed w/ ER physician at length, labs/records/imaging reviewed by me.
[2018-09-06] MEDS: MethylPREDNISolone Sod Succinate Inj 40 MG/ML Vial IV.PUSH SCH ×2 (01:18→07:56)
[2018-09-06] MEDS: Senna/Docusate Sodium 8.6/50 MG Tablet PO SCH ×3 (01:18→10:05)
[2018-09-06] MEDS: Budesonide-Formoterol 160/4.5 MCG 6 GM Inhaler INH SCH ×2 (02:11→10:04)
[2018-09-06 07:57] LABS: Baso % (Auto) 0.4 % (0.0-2.0); Eos % (Auto) 0.4 % (0.0-4.0); Hematocrit 50.2 % (39.0-51.0); Hemoglobin 17.7 gm/dL (13.0-17.0); Lymph # (Auto) 0.5 th/mm3 (1.0-4.8); Lymph % (Auto) 11.6 % (9.0-44.0); Mean Corpuscular HGB Conc 35.2 % (32.0-36.0); Mean Corpuscular Volume 93.6 fL (80.0-100.0); Mean Platelet Volume 8.9 fL (7.0-11.0); Mono # (Auto) 0.1 th/mm3 (0.0-0.9); Mono % (Auto) 2.4 % (0.0-8.0); Neut % (Auto) 85.2 % (16.0-70.0); Platelet Count 148 th/mm3 (150-450); Red Blood Count 5.36 mil/mm3 (4.50-5.90); Red Cell Distribution Width 14.4 % (11.6-17.2); White Blood Count 4.6 th/mm3 (4.0-11.0)
[2018-09-06 08:24] LABS: Albumin 3.4 g/dL (3.4-5.0); Anion Gap 8 meq/L (5-15); Aspartate Aminotransferase 23 U/L (15-37); Blood Urea Nitrogen 14 mg/dL (7-18); Calcium 8.5 mg/dL (8.5-10.1); Carbon Dioxide 21.6 meq/L (21.0-32.0); Chloride 109 meq/L (98-107); Glomerular Filtration Rate 69 mL/min (>89); Glucose,Random 118 mg/dL (74-106); Potassium 4.2 meq/L (3.5-5.1); Sodium 139 meq/L (136-145)
[2018-09-06 08:29] LABS: Alanine Aminotransferase 33 U/L (12-78); Alkaline Phosphatase 125 U/L (45-117); Total Protein 7.8 g/dL (6.4-8.2)
--- NOTE | 2018-09-06 09:08 | P.PN ---
Subjective Interval history: Pt seen and examined for f/u hemoptysis. Patient reports he is otherwise feeling well. He states the hemoptysis seems to be slowing down and he has not coughed much blood since yesterday evening. He is anxious to be able to go home. He does not follow with the PCP and it has been many years since he has sought routine care. He states he has never been sick which is why he does not see a doctor. He feels that the flu and pneumonia vaccines that he received this week are the causes of his problems. He denies any recent weight loss, chest pain, or night sweats. He denies shortness of breath. He has been ambulating. He is tolerating PO. He is agreeable to further evaluation by pulmonology. Physical Exam Vital signs: Vital Signs 09/05/18 17:39 09/05/18 17:53 09/05/18 18:12 Temperature 98.6 F Pulse Rate 80 80 82 Respiratory Rate 18 18 18 Blood Pressure 222/101 H 205/92 H 178/81 H Pulse Oximetry 97 98 97 09/05/18 20:45 09/05/18 20:58 09/05/18 21:36 Temperature 98.0 F Pulse Rate 72 Respiratory Rate 18 Blood Pressure Pulse Oximetry 96 09/05/18 22:06 09/05/18 23:56 09/06/18 03:38 Temperature 98.6 F 98.5 F 97.8 F Pulse Rate 81 83 75 Respiratory Rate 18 18 18 Blood Pressure 164/81 H 138/81 139/65 Pulse Oximetry 95 96 97 09/06/18 08:00 Temperature 98.4 F Pulse Rate 76 Respiratory Rate 14 Blood Pressure 128/73 Pulse Oximetry 97 Intake & Output 09/05/18 09/06/18 09/06/18 18:59 06:59 18:59 Intake Total 150 / 150 Balance 150 / 150 Weight 86.183 kg Intake: IV 150 / 150 Levaquin 750 mg Premix Inj 150 150 / 150 ML @ 100 mls/hr IV.SIG ONCE ONE Rx#:[id number] Narrative: GENERAL: WN, WD male resting in bed in NAD. SKIN: Warm and dry. HEENT: AT/NC. Pupils equal and round. MMM. NECK: Supple no tender LAD or JVD. HEART: RRR no m/r/g. LUNGS: CTAB without wheezes or crackles. ABDOMEN: +BS, soft, NT, ND. EXTREMITIES: No LE edema. 2+ pedal pulses. NEURO: Awake and alert. Nonfocal. PSYCH: Appropriate mood and affect. Results - Labs CBC & Chem 7: 09/06/18 06:10 09/06/18 06:10 Laboratory Results - last 24 hr 09/05/18 09/05/18 09/05/18 18:15 18:15 18:15 WBC 5.5 RBC 5.39 Hgb 17.8 H Hct 51.0 MCV 94.7 MCH 33.1 MCHC 34.9 RDW 14.4 Plt Count 157 MPV 8.9 Neut % (Auto) 60.2 Lymph % (Auto) 25.8 [place] % (Auto) 10.0 H Eos % (Auto) 3.0 Baso % (Auto) 1.0 Neut # (Auto) 3.3 Lymph # (Auto) 1.4 [place] # (Auto) 0.6 Eos # (Auto) 0.2 Baso # (Auto) 0.1 WBC Differential . Differential Comment Auto diff final PT 9.8 INR 1.0 APTT 28.0 Sodium 137 Potassium 4.1 Chloride 107 Carbon Dioxide 21.9 Anion Gap 8 BUN 15 Creatinine 1.17 Estimated GFR 62 L Random Glucose 108 H Calcium 8.6 Total Bilirubin 0.5 AST 24 ALT 33 Alkaline Phosphatase 126 H Total Creatine Kinase 61 Troponin I Less than 0.02 L Total Protein 7.7 Albumin 3.3 L Blood Type Blood Type Recheck Antibody Screen 09/05/18 09/06/18 09/06/18 18:15 06:10 06:10 WBC 4.6 RBC 5.36 Hgb 17.7 H Hct 50.2 MCV 93.6 MCH 33.0 MCHC 35.2 RDW 14.4 Plt Count 148 L MPV 8.9 Neut % (Auto) 85.2 H Lymph % (Auto) 11.6 [place] % (Auto) 2.4 Eos % (Auto) 0.4 Baso % (Auto) 0.4 Neut # (Auto) 4.0 Lymph # (Auto) 0.5 L [place] # (Auto) 0.1 Eos # (Auto) 0.0 Baso # (Auto) 0.0 WBC Differential . Differential Comment Auto diff final PT INR APTT Sodium 139 Potassium 4.2 Chloride 109 H Carbon Dioxide 21.6 Anion Gap 8 BUN 14 Creatinine 1.07 Estimated GFR 69 L Random Glucose 118 H Calcium 8.5 Total Bilirubin 0.5 AST 23 ALT 33 Alkaline Phosphatase 125 H Total Creatine Kinase Troponin I Total Protein 7.8 Albumin 3.4 Blood Type A Positive Blood Type Recheck Required Antibody Screen Negative - Imaging Impressions Chest X-Ray 09/05/18 18:10 CONCLUSION: 1. No acute abnormality or significant interval change. 2. Stable small right pleural effusion/pleural thickening. Chest CTA 09/05/18 18:11 CONCLUSION: 1. No evidence of pulmonary was. 2. Multiple right-sided subcentimeter pulmonary nodular densities. Recommend six-month follow-up noncontrast chest CT by Fleischner criteria. 3. Irregularly-shaped pleural-based elongated opacities in the right middle lobe and right lower lobe, likely representing atelectasis. 4. Old granulomatous disease. 5. Mildly prominent diameter of the ascending thoracic aorta. 6. Mildly prominent nonspecific right axillary lymph nodes. 7. Mild pulmonary emphysema. Assessment and Plan - Assessment (1) Hemoptysis Code(s): R04.2 - Hemoptysis Status: Acute (2) Lung nodules Code(s): R91.8 - Other nonspecific abnormal finding of lung field Status: Acute (3) Tobacco abuse Code(s): Z72.0 - Tobacco use Status: Acute (4) HTN (hypertension) Code(s): I10 - Essential (primary) hypertension Status: Acute (5) COPD (chronic obstructive pulmonary disease) Code(s): J44.9 - Chronic obstructive pulmonary disease, unspecified Status: Acute - Plan 67 year old male with a history of tobacco abuse admitted on 09/05 for hemoptysis. 1. Hemoptysis - No fever or leukocytosis - CXR with no acute findings - CTA chest with multiple right-sided subcentimeter pulmonary nodules, irregularly-shaped pleural-based opacities, likely atelectasis, old granulomatous disease, mild prominent nonspecific right axillary lymph nodes, and mild pulmonary emphysema - Concern for underlying malignancy in the setting of chronic tobacco abuse but others to consider include granulomatous disease, polyangiitis, Goodpast[place], other vasculitis, inflammatory, infectious. Kidney function looks okay. Will check U/A for microscopic hematuria or casts - Pulmonology consulted for further eval and possible bronchoscopy - H&H stable - Sputum culture pending - Check ANCA 2. Emphysema with mild exacerbation - Started on Symbicort - Decrease Solumedrol to Q12 - Patient would benefit from outpatient PFTs and needs f/u - Supplemental O2 PRN - Nebs PRN 3. Tobacco abuse - Counseled on cessation 4. HTN - BPs improved - Not on any current antihypertensive therapy - Continue to monitor DVT prophylaxis: chemical anticoagulation C/I given hemoptysis, patient ambulating Code Status: FULL Discharge Planning: Pending pulmonology eval
[2018-09-06 10:49] LABS: Bilirubin,Urine Negative (Negative); Clarity,Urine Clear (Clear); Color,Urine Yellow (Yellw/Straw); Glucose,Urine (UA) Negative (Negative); Leukocyte Esterase,Urine Negative (Negative); Mucus,Urine Few /lpf (Occasional); Nitrite,Urine Negative (Negative); Specific Gravity,Urine 1.023 (1.002-1.035)
[2018-09-06 12:35] VITALS: BP 180/93; PULSE 89; RESP 16; TEMP 98.2; O2SAT 95
--- NOTE | 2018-09-06 15:33 | ECG ---
Date Performed: 09/05/2018 Time Performed: 18:01:25 PTAGE: 67 years EKG: Sinus rhythm BORDERLINE LEFT AXIS DEVIATION MODERATE INTRAVENTRICULAR CONDUCTION DELAY BORDERLINE ECG Compared to PREVIOUS TRACING , axis slightly more leftward, otherwise no significant change. PREVIOUS TRACIN12/02/2016 10.44 DOCTOR: Dinh Mejia Interpretating Date/Time 09/06/2018 15:32:22
[2018-09-06] MEDS ORDERED: MethylPREDNISolone Sod Succinate Inj 40 MG/ML Vial IV.PUSH SCH (21:00)
== END 2018-09-06 14:26 | disposition left against medical advice (07) ==
LOC: NEPC 17:35 → NEDA 17:35 → NEPHCDU 22:01
PROVIDERS: ADMIT Family Medicine; ATTEND Family Medicine